=== PATIENT | female | born 1950 | race Caucasian/White ===

== ENCOUNTER 2017-01-05 08:33 | Day surgery (SDC) | payer MEDICARE, BC ==
[~2017-01-05 08:33] MED LIST: ACETAMINOPHEN 1,000 MG/100 ML BTL IV ONE; CELECOXIB 100 MG CAPSULE PO ONE; FAMOTIDINE 20MG TABLET PO ONE; METOCLOPRAMIDE 10 MG TABLET PO ONE; SCOPOLAMINE 1 PATCH TDSY TD ONE; VANCOMYCIN HCL 1,000 MG in 0.9 % SODIUM CHLORIDE 250ML 250 ML IVPB ONE
[2017-01-05 09:59] LABS: ABO GROUP O; ANTIBODY SCREEN NEGATIVE (NEGATIVE); RH TYPE POSITIVE
[2017-01-05] MEDS ORDERED: ONDANSETRON 4 MG ODT TABLET SL PRN (13:36)
[2017-01-05] MEDS ORDERED: ACETAMINOPHEN W/ CODEINE 300MG/60MG TABLET PO PRN ×2 (13:36)
[2017-01-05] MEDS ORDERED: NALOXONE 0.4 MG/1 ML VIAL IVP PRN (13:36)
[2017-01-05] MEDS ORDERED: TRAMADOL HCL 50 MG TABLET PO PRN ×2 (13:36)
[2017-01-05] MEDS ORDERED: KETOROLAC 30 MG/ML VIAL IVP PRN ×2 (13:36)
[2017-01-05] MEDS ORDERED: PROMETHAZINE HCL 25 MG TABLET PO PRN (13:36)
[2017-01-05] MEDS ORDERED: DIPHENHYDRAMINE HCL 25 MG CAPSULE PO PRN (13:36)
[2017-01-05] MEDS ORDERED: DEXTROSE 5 % AND 0.9 % NACL 1,000 ML IV PRN (13:36)
[2017-01-05] MEDS ORDERED: HYDROCODONE/APAP 5/325MG TABLET PO PRN ×2 (13:36)
[2017-01-05] MEDS ORDERED: HYDROCODONE/APAP 7.5/325MG TABLET PO PRN ×2 (13:36)
[2017-01-05] MEDS ORDERED: AL HYDROX/MAG HYDROX 30ML UD PO PRN (13:36)
[2017-01-05] MEDS ORDERED: BISACODYL 10 MG SUPP RC PRN (13:36)
[2017-01-05] MEDS ORDERED: ACETAMINOPHEN 325 MG TAB PO PRN (13:36)
[2017-01-05] MEDS ORDERED: ACETAMINOPHEN W/ CODEINE 300MG/30MG TABLET PO PRN ×2 (13:36)
[2017-01-05] MEDS ORDERED: METOCLOPRAMIDE 10 MG TABLET PO PRN (13:36)
[2017-01-05] MEDS ORDERED: MAGNESIUM HYDROXIDE 30 ML UDC PO PRN (13:36)
[2017-01-05] MEDS ORDERED: KETOROLAC 30 MG/ML VIAL IVP ONE (14:00)
[2017-01-05] MEDS ORDERED: MEPIVACAINE HCL/PF (POLOCAINE) 2% 20MG/ML VIAL INJ ONE (14:00)
[2017-01-05] MEDS ORDERED: MIDAZOLAM HCL 2MG/2ML VIAL IV ONE (14:00)
[2017-01-05] MEDS ORDERED: BUPIVACAINE 0.5% W/EPI MPF 30 ML VIAL IVP ONE (14:00)
[2017-01-05] MEDS ORDERED: TRANEXAMIC ACID 1,000 MG/10 ML ML IV ONE (14:00)
[2017-01-05] MEDS ORDERED: PROPOFOL 10 MG/ML VIAL IV ONE (14:00)
[2017-01-05] MEDS ORDERED: FENTANYL PF 100MCG/2ML VIAL IV ONE (14:00)
[2017-01-05] MEDS ORDERED: HYDROMORPHONE HCL 2 MG/ML VIAL IV ONE (14:00)
[2017-01-05] MEDS ORDERED: VANCOMYCIN HCL 500 MG in 0.9 % SODIUM CHLORIDE 100ML 100 ML IVPB SCH (16:00)
--- NOTE | 2017-01-05 18:18 | Rehab Evaluation ---
Patient Information - Patient Information Diagnosis: OA R knee, s/p TKA Ordered Treatment: PT Evaluate and Treat Status: Initial Evaluation Surgery: Yes (R TKA) Date of Surgery: 01/05/17 History: Detail (Pt has pain in B knees, but states the R knee has gotten progressively worse over the past two years.) Past Med/Nataly Hx Detail: Detail Past Medical/Surgical Hx: PAST MEDICAL/SURGICAL HISTORY Past Surgical History appy; total hysterectomy C-SCOPE D/C PMH - Respiratory Hx Respiratory Disorders No PMH - Cardiovascular Hx Cardiovascular Disorders No Exercise Tolerance Good PMH - Neuro Hx Neurological Disorders No PMH - GI Hx Gastrointestinal Disorders No PMH - Hx Genitourinary Disorders No Comment: hyst PMH - Endocrine Hx Endocrine Disorders No PMH - Musculoskeletal Hx Musculoskeletal Disorders Yes Hx Arthritis Yes: rt knee PMH - Psych Hx Psychiatric Problems No PMH - Hematology/Oncology Hx Hematology/Oncology No Disorders Premorbid Status: Detail (Pt has been ambulating w/o assistive device, but states she has been limping more recently because of pain in the R knee. She has been performing all ADLs independently, including driving.) Social History: Detail (Pt lives w/ in single story home w/3 steps into home w/single handrail on R ascending and grab bar at top of handrail on R. He will be available 24 hours/day to assist w/pt at home. Home care is already arranged for this evening.) Precautions: Kinsey, Fall - Time With Patient Total Time Spent With Patient (Min): 35 Treatment Procedures: Detail (PT Evaluation) Subjective Information - Subjective Information Per Patient (Pt states she is just starting to feel some discomfort at medial R knee, but had pain meds 15 minutes ago. Has sensation and voluntary movement in B LEs. Awake/alert, cooperative.) Objective Data - Pain Pain Present: Yes Pain Intensity: 2 Pain Scale Used: Numeric (1 - 10) - Mental Status Patient Orientation: Oriented x3 - Visual Perception Appears within normal limits for therapeutic activities - ROM Not within normal limits (R knee in bulky bandage and wrap, although appears to have full extension; knee flexion is about 60 degrees when sitting at edge of bed. LE ROM is grossly WNL.) - Strength/Tone Not within normal limits (Pt demonstrates at least fair strength in R hip flexion, abduction, adduction, knee extension and flexion, ankle df. She is able to independently move R LE from bed and onto bed.) - Coordination Appears within normal limits for therapeutic activities - Bed Mobility Independent (Pt was able to slide R LE out of bed, come to sitting at edge of bed independently. She was able to get R LE back into bed, scoot up in bed and position herself independently.) - Transfers Independent (Pt came to standing from bedside to front-wheeled walker independently, verbal cues to position self for returning to bed..) - Balance Balance Sitting: Good Balance Standing: Good - Sensation Intact - Gait Detail (Pt ambulated about 95 feet to and from bedside, out to tor[place] and to [facility], WBAT R LE w/front wheeled walker, assist for IV and CGA/SBA. Ascended/descended 3 steps w/single handrail on one side, folded walker on other side, w/CGA and verbal review of technique.) Therapy Assessment - Therapy Assessment Detail (Pt demonstrates safety and independence w/bed mobility, transfers, and ambulation w/front wheeled walker; she requires at least CGA for ascending/ descending stairs. She demonstrates good understanding of HEP of ankle pumps, gluteal isometrics, quad isometrics, hamstring isometrics, and heel slides.) Patient Education - Patient Education Teaching Topic: Equipment Use, Exercise/Activity Response: Return Demonstration, Verbalize Understanding Teaching Method: Discussion, Demonstration Teaching Recipient: Patient, Family Barriers To Learning: None Problem List - Problem List Physical Therapy Problem List: Detail (1. Impaired ROM and strength of R LE 2. Difficulty walking) Goals - Goals Physical Therapy Goals: 1. No goals formulated: Pt passed all requirements to be able to go home. Prognosis - Prognosis Good Plan - Plan Physical Therapy Plan: Pt is discharged from physical therapy at this time. She is scheduled to begin home physical therapy tomorrow, [facility] is meeting her at home tonight.
[2017-01-05] MEDS ORDERED: DOCUSATE SODIUM 100 MG CAPSULE PO SCH (22:00)
--- NOTE | 2017-01-06 12:31 | Occupational Therapy Tx Note ---
Occupational Therapy Tx Note - Treatment Note Occupational Therapy Treatment Note: Detail (Per PT report pt is familiar with all OT equipment and has no ADL/IADL concerns. No OT eval was completed per the above.)
--- NOTE | 2017-01-14 16:22 | Operative Note ---
DATE OF SURGERY: 01/05/2017 PREOPERATIVE DIAGNOSIS: Left knee incision arthroscopy. POSTOPERATIVE DIAGNOSIS: Left knee incision arthroscopy. OPERATION: Left total knee arthroplasty. Surgeon: Lionel Wallace MD Anesthesia: Spinal. COMPLICATIONS: None. BLOOD LOSS: Minimal. TOURNIQUET TIME: Approximately 60 minutes. OPERATIVE FINDINGS: [id number]-lb-ecta medial compartment arthrosis. COMPONENTS PLACED: A 2 g vancomycin cement [employer] II total knee arthroplasty system size 5 femoral component, a size 4 tibial baseplate, a 9 mm thick tibial poly insert, and 32 mm cemented patellar component. Indications: This is a 67-year-old female who has had persistent pain and dysfunction in her knee for several years. Nonoperative treatment she failed, including injections, anti-inflammatory. Scheduled for surgery. I explained all risks and benefits of surgery in detail for the diagnosis and procedures including but not limited to infection, nerve injury, vessel injury, persistent pain, numbness, tingling, periprosthetic fracture, need for resection arthroplasty if components are infected or loose, intervention for blood clot, amputation, need for further procedures, and need for anticoagulation. All her questions were answered. The course was outlined. Agreed to proceed. PROCEDURE: The patient brought to the OR, placed in the supine position, prepped for surgery. Spinal anesthesia induced. The left lower extremity prepped and draped in sterile fashion. Left knee was prepped again with Chloraprep and draped. Intraoperative timeout was performed. Next, skin and subcutaneous tissue dissected down to the vastus medialis and the capsule. The capsule incised around the medial border of the patella and then vastus medialis was split in line with its fibers in a mid vastus approach. Next, the patella was everted, partially resected the retropatellar fat pad. She had [id number] arthrosis medially. There was basically no cartilage in the medial femoral condyle. There were also osteophytes of the lateral femoral condyle. We did note she had some normal cartilage here and some chondromalacia patella. Next, flexed knee, drilled intracondylar drill hole, and inserted intramedullary guide sd and the 6-degree cutting block and aligned the distal femoral condyles and pinned it in place in the +2 mm position. We then cut the distal femoral condyles. Next, we placed a sizing jig on the distal femoral condyle and sized it to be right on size 5. Through previously-placed pin holes, we placed the size 5 cutting jig. We dialed in the anterior cut so it would come out flush without notch and we cut that and it was a good flush cut. Next, pinned the cutting jig, completed fixation and cut the remainder of the chamfer cuts in the usual fashion. Next, we placed a size 5 trial component, centered it, pinned it, removed osteophytes on the periphery and checked and inserted the cruciate resection cutting jig and reamed down on box osteotomed out the cruciate block. Next, inserted the box osteotome as well. Next, attention turned to the tibia. Placed the extra-alignment jig in the tibia, seated the spikes in the tubercle groove 2 fingerbreadths distal to the anterior tibial cortex in reference for a 7 mm cut off the higher lateral plateau. We pinned the cutting jig in position provisionally with 2 anterior-posterior pins. Next, rechecked alignment of our cutting jig using a drop sd centered on the tibial anatomic axis and we then cut the tibia flush. Next, removed osteophytes of the posterior femoral condyles. Checked the flexion/extension gaps. Had symmetric flexion/extension gaps with 9 mm thick poly insert. Overall alignment cuts in extension anatomic valgus orientation with alignment sd centered on the hip joint and ankle joint and this is the size we used. Next, took the knee in flexion and sized the tibial baseplate size 4, replaced all trial components, again set the rotation tibial baseplate in extension using the alignment sd centered on hip joint and ankle joint. Marked with electrocautery couch anterior tibial cortex to the laser couch of the tibial baseplate and . Next, measured the patella to be 22 mm. Set the cutting jig at 13 mm to allow for a 9 mm thick poly insert. Cut the patella, chamfered off the lateral patellar facet, sized to be 32, medialized as much as possible, and drilled 3 peg holes and then mixed cement. Checked flexion/extension gaps. Were symmetric with a 9 mm thick poly insert. Again this remained normally orientation. Range of motion the same. Next, took the knee in flexion, re-exposed the proximal tibia, seated the aligned the tibial baseplate off the previously placed electrocautery couch, pinned it in place and then reamed and keel punched the keel hole. Next, we then changed gloves, brought in a clean sheet. Placed a bone plug in the femoral canal home and irrigated all bony surfaces with pulse lavage antibiotic solution. Then precut bolsters and packed down the tibial component, then a cement femoral component, and placed a trial tibial poly liner and held the knee in extension until the cement hardened and impacted down the patella component. Once the cement hardened, took the knee in flexion, removed excess cement off the edges of the components, irrigated copiously. We used the bone hook and sponge. Removed the trial tibial poly insert and injected the 0.5% Marcaine with epi, 2 g tranexamic acid, and Exparel mixture with multiple small sticks throughout the entire knee, the posterior, medial, and lateral capsule, the medial and lateral periosteum working from deep to superficial, muscle, and subcutaneous and skin. Next, we then inserted the real tibial poly insert and verified it was interlocked medially and laterally. We found the range of motion was still the same. Irrigated copiously and then with the knee in flexion, repaired the capsule with running #2 Quill. Irrigated again, closed skin with 2-0 Vicryl and robert. Injected with 0.5% Marcaine with epi. Sterile dressing applied. Patient tolerated the procedure well. No intraoperative complications. Sponge, needle, and blade counts correct. Recovery room stable, neuro intact. She will be discharged as an outpatient and follow up in 2 weeks. ITZ
== END 2017-01-05 19:40 | disposition home health service (06) ==
LOC: SUR 08:33 → MEDSURG 16:42 → SUR 19:40
PROVIDERS: ATTEND Orthopaedic Surgery
DX: M17.11 Unilateral primary osteoarthritis, right knee (principal)
CPT/HCPCS: 86850; 86900; 86901; J0670; J1885; J3370; J7042; J7050